=== PATIENT | female | born 1945 | race Caucasian/White ===

== ENCOUNTER 2019-08-23 23:40 | Inpatient (IN) | payer MEDICARE ==
[~2019-08-23] VITALS: Ht 165.1 cm; Wt 84.0 kg
[2019-08-24] MEDS ORDERED: LISI1TAB20 PO (01:55)
[2019-08-24] MEDS: PLEASE ENTER ALLERGIES MC SCH ×6 (02:00→07:00)
[2019-08-24] MEDS ORDERED: morphine SULFATE 10 MG/ML, 1ML IVPush ONE (02:00)
[2019-08-24] MEDS ORDERED: GLUC1TAB27 PO (02:03)
[2019-08-24] MEDS ORDERED: CHOL100011 PO (02:03)
[2019-08-24] MEDS ORDERED: MELO7.5T31 PO (02:03)
[2019-08-24] MEDS ORDERED: MULT-257 PO (02:03)
[2019-08-24] MEDS ORDERED: TRAM50TA2 PO (02:03)
[2019-08-24] MEDS ORDERED: PRAV80TA2 PO (02:03)
[2019-08-24] MEDS ORDERED: hydrALAzine 20 MG/ML, 1ML IVPush PRN (02:30)
[2019-08-24] MEDS ORDERED: ACETAMINOPHEN 325 MG TABLET PO PRN (02:30)
[2019-08-24] MEDS ORDERED: ONDANSETRON 2MG/ML, 2ML IVPush PRN (02:30)
[2019-08-24 02:49] VITALS: BP 138/75
[2019-08-24] MEDS ORDERED: CEFEPIME 2 GM in DEXTROSE 5% 100 ML IV SCH (03:00)
[2019-08-24 03:02] LABS: HCT (SEDRATE) 33.8 % (34.6-47.8)
[2019-08-24 03:03] LABS: BASOPHILS # (AUTO) 0.03 x10^3/uL (0-0.1); BASOPHILS % (AUTO) 0 % (0-1); EOSINOPHILS # (AUTO) 0.22 x10^3/uL (0-0.4); EOSINOPHILS % (AUTO) 2 % (1-7); LYMPHOCYTES % (AUTO) 17 % (22-44); MD NO; MEAN CORPUSCULAR HEMOGLOBIN 28.1 pg (27.0-34.8); MEAN CORPUSCULAR HGB CONC 33.1 g/dL (32.4-35.8); MEAN CORPUSCULAR VOLUME 84.7 fL (80-100); MONOCYTES % (AUTO) 8 % (2-9); NEUTROPHILS # (AUTO) 7.42 x10^3/uL (1.8-6.8); NEUTROPHILS % (AUTO) 73 % (42-75); PLATELET COUNT 319 x10^3/uL (130-400); RED BLOOD COUNT 3.95 x10^6/uL (3.82-5.3); RED CELL DISTRIBUTION WIDTH 13.6 % (9.6-15.2)
[2019-08-24 03:08] LABS: INTERNATIONAL NORMALIZED RATIO 0.97 (0.93-1.1); PROTHROMBIN TIME 10.3 Seconds (9.6-11.5)
[2019-08-24 03:11] LABS: ALANINE AMINOTRANSFERASE 22 U/L (12-78); ALBUMIN 3.1 g/dL (3.4-5.0); ANION GAP 8 mmol/L (5-15); CALCIUM 8.8 mg/dL (8.5-10.1); CHLORIDE 108 mmol/L (98-107); CREATININE 1.04 mg/dL (0.55-1.02)
[2019-08-24 03:16] LABS: ALKALINE PHOSPHATASE 118 U/L (45-117); BILIRUBIN,TOTAL 0.5 mg/dL (0.2-1.0); TOTAL PROTEIN 6.3 g/dL (6.4-8.2); TROPONIN I 0.024 ng/mL (0.000-0.045)
[2019-08-24] MEDS ORDERED: POTASSIUM CHLORIDE 40 MEQ in SODIUM CHLORIDE 0.9% 500 ML IV ONE (04:00)
[2019-08-24] MEDS: METRONIDAZOLE PMX 500MG/100ML 100 ML IV SCH ×3 (05:01→17:50)
[2019-08-24] MEDS: morphine SULFATE 10 MG/ML, 1ML IVPush PRN ×6 (07:38→22:20)
[2019-08-24 07:54] VITALS: BP 126/58
[2019-08-24 08:08] LABS: MICROSCOPIC NOT IND
[2019-08-24 08:13] LABS: CULTURE INDICATED? NO
[2019-08-24] MEDS ORDERED: LIDOCAINE 1%, 20ML ONE (13:18)
[2019-08-24 13:30] VITALS: BP 145/79
[2019-08-24] MEDS ORDERED: FLUMAZENIL 0.1 MG/1 ML, 5ML ONE (13:34)
[2019-08-24] MEDS ORDERED: FENTANYL PF 100 MCG/2ML ONE (13:34)
[2019-08-24] MEDS ORDERED: NALOXONE 1 MG/ML, 2ML ONE (13:34)
[2019-08-24] MEDS ORDERED: MIDAZOLAM 1 MG/ML, 5ML ONE ×2 (13:34→14:08)
[2019-08-24 14:16] LABS: MICROSCOPIC NOT IND
[2019-08-24 19:31] VITALS: BP 133/71
[2019-08-24 19:32] VITALS: BP 119/73
[2019-08-24] MEDS: PRAVASTATIN 40 MG TABLET PO SCH (20:58)
[2019-08-25] MEDS: METRONIDAZOLE PMX 500MG/100ML 100 ML IV SCH ×4 (00:20→17:27)
[2019-08-25 03:05] VITALS: BP 142/72
[2019-08-25] MEDS: morphine SULFATE 10 MG/ML, 1ML IVPush PRN ×2 (03:39→20:29)
[2019-08-25] MEDS: CEFEPIME 2 GM in DEXTROSE 5% 100 ML IV SCH (03:44)
[2019-08-25 04:58] LABS: BASOPHILS # (AUTO) 0.04 x10^3/uL (0-0.1); BASOPHILS % (AUTO) 1 % (0-1); EOSINOPHILS # (AUTO) 0.33 x10^3/uL (0-0.4); EOSINOPHILS % (AUTO) 4 % (1-7); LYMPHOCYTES # (AUTO) 1.31 x10^3/uL (1-3.4); LYMPHOCYTES % (AUTO) 14 % (22-44); MD NO; MEAN CORPUSCULAR HEMOGLOBIN 28.6 pg (27.0-34.8); MEAN CORPUSCULAR HGB CONC 33.6 g/dL (32.4-35.8); MEAN CORPUSCULAR VOLUME 85.1 fL (80-100); MEAN PLATELET VOLUME 9.1 fL (7.4-10.4); MONOCYTES # (AUTO) 0.72 x10^3/uL (0.2-0.8); MONOCYTES % (AUTO) 8 % (2-9); NEUTROPHILS # (AUTO) 6.81 x10^3/uL (1.8-6.8); NEUTROPHILS % (AUTO) 74 % (42-75); PLATELET COUNT 254 x10^3/uL (130-400); RED CELL DISTRIBUTION WIDTH 14.1 % (9.6-15.2)
[2019-08-25 05:05] LABS: ALBUMIN 2.9 g/dL (3.4-5.0); ANION GAP 5 mmol/L (5-15); CALCIUM 8.5 mg/dL (8.5-10.1); CHLORIDE 108 mmol/L (98-107)
[2019-08-25 05:08] LABS: ALANINE AMINOTRANSFERASE 20 U/L (12-78); ALKALINE PHOSPHATASE 114 U/L (45-117); BILIRUBIN,TOTAL 0.6 mg/dL (0.2-1.0); CREATININE 1.03 mg/dL (0.55-1.02); TOTAL PROTEIN 5.7 g/dL (6.4-8.2)
[2019-08-25 07:26] VITALS: BP 131/61
[2019-08-25] MEDS: MULTIVITAMIN 1 TABLET PO SCH (08:38)
[2019-08-25] MEDS: HYDROCHLOROTHIAZIDE 25 MG TABLET PO SCH (08:46)
[2019-08-25] MEDS: LISINOPRIL 20 MG TABLET PO SCH (08:46)
[2019-08-25] MEDS ORDERED: LISINOPRIL 20 MG TABLET PO SCH (09:00)
[2019-08-25 13:44] VITALS: BP 113/50
[2019-08-25] MEDS: POTASSIUM CHLORIDE 20 MEQ TAB.ER.PRT PO SCH (16:46)
[2019-08-25 19:52] VITALS: BP 143/66
[2019-08-25] MEDS: PRAVASTATIN 40 MG TABLET PO SCH (20:32)
[2019-08-26] MEDS: METRONIDAZOLE PMX 500MG/100ML 100 ML IV SCH ×4 (00:05→18:34)
[2019-08-26 00:39] VITALS: BP 142/64
[2019-08-26] MEDS: CEFEPIME 2 GM in DEXTROSE 5% 100 ML IV SCH (04:35)
[2019-08-26] MEDS: morphine SULFATE 10 MG/ML, 1ML IVPush PRN ×4 (04:37→23:54)
[2019-08-26 05:23] LABS: BASOPHILS # (AUTO) 0.02 x10^3/uL (0-0.1); BASOPHILS % (AUTO) 0 % (0-1); EOSINOPHILS # (AUTO) 0.21 x10^3/uL (0-0.4); EOSINOPHILS % (AUTO) 2 % (1-7); LYMPHOCYTES # (AUTO) 0.77 x10^3/uL (1-3.4); LYMPHOCYTES % (AUTO) 6 % (22-44); MD NO; MEAN CORPUSCULAR HEMOGLOBIN 28.9 pg (27.0-34.8); MEAN CORPUSCULAR HGB CONC 33.6 g/dL (32.4-35.8); MEAN CORPUSCULAR VOLUME 85.9 fL (80-100); MEAN PLATELET VOLUME 9.1 fL (7.4-10.4); MONOCYTES # (AUTO) 1.12 x10^3/uL (0.2-0.8); MONOCYTES % (AUTO) 9 % (2-9); NEUTROPHILS # (AUTO) 10.18 x10^3/uL (1.8-6.8); NEUTROPHILS % (AUTO) 83 % (42-75); PLATELET COUNT 261 x10^3/uL (130-400); RED BLOOD COUNT 3.81 x10^6/uL (3.82-5.3)
[2019-08-26 05:26] LABS: ANION GAP 3 mmol/L (5-15); CALCIUM 8.6 mg/dL (8.5-10.1); CHLORIDE 104 mmol/L (98-107); CREATININE 0.95 mg/dL (0.55-1.02)
[2019-08-26 07:20] VITALS: BP 134/63
[2019-08-26] MEDS ORDERED: POTASSIUM CHLORIDE 20 MEQ in SODIUM CHLORIDE 0.9% 250 ML IV ONE (08:30)
[2019-08-26] MEDS ORDERED: VANCOMYCIN PER PHARMACY MC PRN (08:30)
[2019-08-26] MEDS: POTASSIUM CHLORIDE 20 MEQ TAB.ER.PRT PO SCH (08:36)
[2019-08-26] MEDS: MULTIVITAMIN 1 TABLET PO SCH (08:36)
[2019-08-26] MEDS: HYDROCHLOROTHIAZIDE 25 MG TABLET PO SCH (08:36)
[2019-08-26] MEDS: LISINOPRIL 20 MG TABLET PO SCH (08:36)
[2019-08-26] MEDS: CHOLECALCIFEROL 400 UNITS TABLET PO SCH (08:53)
[2019-08-26] MEDS ORDERED: PHARMACOKINETIC MONITORING MC PRN (09:30)
[2019-08-26] MEDS ORDERED: PHARMACOKINETIC CONSULTATION MC ONE (09:30)
[2019-08-26] MEDS: VANCOMYCIN 1,700 MG in SODIUM CHLORIDE 0.9% 250 ML IV SCH ×2 (11:45→23:44)
[2019-08-26 13:43] VITALS: BP 121/70
[2019-08-26] MEDS: ASCORBIC ACID 500 MG TABLET PO SCH (18:34)
[2019-08-26 19:26] VITALS: BP 120/70
[2019-08-26] MEDS: PRAVASTATIN 40 MG TABLET PO SCH (20:32)
[2019-08-27 00:58] VITALS: BP 120/73
[2019-08-27] MEDS: METRONIDAZOLE PMX 500MG/100ML 100 ML IV SCH ×4 (02:00→20:29)
[2019-08-27] MEDS: CEFEPIME 2 GM in DEXTROSE 5% 100 ML IV SCH (04:25)
[2019-08-27 05:50] LABS: BASOPHILS % (AUTO) 0 % (0-1); EOSINOPHILS # (AUTO) 0.11 x10^3/uL (0-0.4); EOSINOPHILS % (AUTO) 1 % (1-7); LYMPHOCYTES # (AUTO) 0.77 x10^3/uL (1-3.4); LYMPHOCYTES % (AUTO) 7 % (22-44); MD NO; MEAN CORPUSCULAR HEMOGLOBIN 28.6 pg (27.0-34.8); MEAN CORPUSCULAR HGB CONC 33.3 g/dL (32.4-35.8); MEAN CORPUSCULAR VOLUME 85.9 fL (80-100); MEAN PLATELET VOLUME 9.4 fL (7.4-10.4); MONOCYTES # (AUTO) 1.03 x10^3/uL (0.2-0.8); MONOCYTES % (AUTO) 10 % (2-9); NEUTROPHILS # (AUTO) 8.85 x10^3/uL (1.8-6.8); NEUTROPHILS % (AUTO) 82 % (42-75); PLATELET COUNT 216 x10^3/uL (130-400); RED BLOOD COUNT 3.65 x10^6/uL (3.82-5.3); RED CELL DISTRIBUTION WIDTH 14.1 % (9.6-15.2)
[2019-08-27 05:54] LABS: ALBUMIN 2.5 g/dL (3.4-5.0); ANION GAP 7 mmol/L (5-15); CALCIUM 8.5 mg/dL (8.5-10.1); CHLORIDE 102 mmol/L (98-107); CREATININE 0.79 mg/dL (0.55-1.02)
[2019-08-27] MEDS: ASCORBIC ACID 500 MG TABLET PO SCH ×2 (07:40→17:07)
[2019-08-27] MEDS: HYDROCHLOROTHIAZIDE 25 MG TABLET PO SCH (07:41)
[2019-08-27] MEDS: MULTIVITAMIN 1 TABLET PO SCH (07:41)
[2019-08-27] MEDS: CHOLECALCIFEROL 400 UNITS TABLET PO SCH (07:44)
[2019-08-27] MEDS: LISINOPRIL 20 MG TABLET PO SCH (07:45)
[2019-08-27] MEDS: morphine SULFATE 10 MG/ML, 1ML IVPush PRN (07:53)
[2019-08-27 08:00] VITALS: BP 141/72
[2019-08-27] MEDS ORDERED: POTASSIUM CHLORIDE 20 MEQ in SODIUM CHLORIDE 0.9% 250 ML IV ONE (09:00)
[2019-08-27] MEDS ORDERED: MAGNESIUM SULFATE PMX 2GM/50ML 50 ML IV ONE (09:00)
[2019-08-27] MEDS ORDERED: LORazepam 2 MG/ML, 1ML IVPush ONE (10:00)
[2019-08-27] MEDS: HYDROmorphone 2 MG/ML, 1ML IVPush PRN ×2 (10:05→11:45)
[2019-08-27] MEDS ORDERED: POTASSIUM PHOSPHATE 44 MEQ in SODIUM CHLORIDE 0.9% 500 ML IV ONE (12:00)
[2019-08-27] MEDS: VANCOMYCIN 1,700 MG in SODIUM CHLORIDE 0.9% 250 ML IV SCH (12:40)
[2019-08-27 12:53] VITALS: BP 107/41
[2019-08-27] MEDS ORDERED: CHLORHEXIDINE 15 ML UDC MM ONE (14:30)
[2019-08-27] MEDS ORDERED: FENTANYL PF 100 MCG/2ML ONE (15:02)
[2019-08-27] MEDS ORDERED: PROPOFOL 10 MG/ML, 20ML ONE (15:12)
[2019-08-27] MEDS ORDERED: DEXAMETHASONE 4 MG/ML, 1ML ONE (15:12)
[2019-08-27] MEDS ORDERED: SUCCINYLCHOLINE 20 MG/ML, 10ML ONE (15:12)
[2019-08-27] MEDS ORDERED: ONDANSETRON 2MG/ML, 2ML ONE (15:12)
[2019-08-27 19:07] VITALS: BP 123/68
[2019-08-27] MEDS: PRAVASTATIN 40 MG TABLET PO SCH (20:29)
[2019-08-28 00:25] VITALS: BP 117/71
[2019-08-28] MEDS: VANCOMYCIN 1,700 MG in SODIUM CHLORIDE 0.9% 250 ML IV SCH (00:26)
[2019-08-28] MEDS: METRONIDAZOLE PMX 500MG/100ML 100 ML IV SCH ×2 (02:39→08:23)
[2019-08-28] MEDS: CEFEPIME 2 GM in DEXTROSE 5% 100 ML IV SCH (03:59)
[2019-08-28 04:34] VITALS: BP 120/63
[2019-08-28 05:30] LABS: ALBUMIN 2.4 g/dL (3.4-5.0); ANION GAP 7 mmol/L (5-15); BASOPHILS # (AUTO) 0.06 x10^3/uL (0-0.1); BASOPHILS % (AUTO) 1 % (0-1); CALCIUM 8.9 mg/dL (8.5-10.1); CHLORIDE 102 mmol/L (98-107); CREATININE 0.79 mg/dL (0.55-1.02); EOSINOPHILS # (AUTO) 0.01 x10^3/uL (0-0.4); EOSINOPHILS % (AUTO) 0 % (1-7); LYMPHOCYTES # (AUTO) 0.38 x10^3/uL (1-3.4); LYMPHOCYTES % (AUTO) 3 % (22-44); MD NO; MEAN CORPUSCULAR HEMOGLOBIN 28.3 pg (27.0-34.8); MEAN CORPUSCULAR HGB CONC 32.7 g/dL (32.4-35.8); MEAN CORPUSCULAR VOLUME 86.4 fL (80-100); MEAN PLATELET VOLUME 9.1 fL (7.4-10.4); MONOCYTES # (AUTO) 0.98 x10^3/uL (0.2-0.8); MONOCYTES % (AUTO) 7 % (2-9); NEUTROPHILS # (AUTO) 12.16 x10^3/uL (1.8-6.8); NEUTROPHILS % (AUTO) 90 % (42-75); PLATELET COUNT 255 x10^3/uL (130-400); RED BLOOD COUNT 3.82 x10^6/uL (3.82-5.3); RED CELL DISTRIBUTION WIDTH 13.9 % (9.6-15.2)
[2019-08-28 07:45] VITALS: BP 122/83
[2019-08-28] MEDS: CHOLECALCIFEROL 400 UNITS TABLET PO SCH (08:24)
[2019-08-28] MEDS: ASCORBIC ACID 500 MG TABLET PO SCH ×2 (08:25→18:02)
[2019-08-28] MEDS: HYDROCHLOROTHIAZIDE 25 MG TABLET PO SCH (08:25)
[2019-08-28] MEDS: LISINOPRIL 20 MG TABLET PO SCH (08:25)
[2019-08-28] MEDS: MULTIVITAMIN 1 TABLET PO SCH (08:28)
[2019-08-28 13:40] VITALS: BP 102/63
[2019-08-28 19:18] VITALS: BP 113/57
[2019-08-28] MEDS: PRAVASTATIN 40 MG TABLET PO SCH (20:21)
[2019-08-28] MEDS: morphine SULFATE 10 MG/ML, 1ML IVPush PRN (23:44)
[2019-08-29 00:08] VITALS: BP 128/78
[2019-08-29 05:28] LABS: BASOPHILS # (AUTO) 0.06 x10^3/uL (0-0.1); BASOPHILS % (AUTO) 1 % (0-1); EOSINOPHILS # (AUTO) 0.14 x10^3/uL (0-0.4); EOSINOPHILS % (AUTO) 1 % (1-7); LYMPHOCYTES # (AUTO) 0.87 x10^3/uL (1-3.4); LYMPHOCYTES % (AUTO) 9 % (22-44); MD NO; MEAN CORPUSCULAR HEMOGLOBIN 28.3 pg (27.0-34.8); MEAN CORPUSCULAR VOLUME 85.7 fL (80-100); MEAN PLATELET VOLUME 9.6 fL (7.4-10.4); MONOCYTES # (AUTO) 0.81 x10^3/uL (0.2-0.8); MONOCYTES % (AUTO) 8 % (2-9); NEUTROPHILS # (AUTO) 8.33 x10^3/uL (1.8-6.8); NEUTROPHILS % (AUTO) 82 % (42-75); PLATELET COUNT 286 x10^3/uL (130-400); RED BLOOD COUNT 3.68 x10^6/uL (3.82-5.3); RED CELL DISTRIBUTION WIDTH 14.2 % (9.6-15.2)
[2019-08-29 05:34] LABS: ALBUMIN 2.4 g/dL (3.4-5.0); ANION GAP 5 mmol/L (5-15); CALCIUM 8.8 mg/dL (8.5-10.1); CHLORIDE 103 mmol/L (98-107)
[2019-08-29] MEDS: morphine SULFATE 10 MG/ML, 1ML IVPush PRN (06:32)
[2019-08-29] MEDS ORDERED: POTASSIUM CHLORIDE 20 MEQ in SODIUM CHLORIDE 0.9% 250 ML IV ONE (07:00)
[2019-08-29 07:29] VITALS: BP 139/79
[2019-08-29] MEDS: MULTIVITAMIN 1 TABLET PO SCH (08:35)
[2019-08-29] MEDS: ASCORBIC ACID 500 MG TABLET PO SCH (08:35)
[2019-08-29] MEDS: HYDROCHLOROTHIAZIDE 25 MG TABLET PO SCH (08:35)
[2019-08-29] MEDS: LISINOPRIL 20 MG TABLET PO SCH (08:36)
[2019-08-29] MEDS: CHOLECALCIFEROL 400 UNITS TABLET PO SCH (08:36)
[2019-08-29] MEDS ORDERED: BUTALB/APAP/CAFFEINE 50MG/325MG/40MG PO PRN (09:00)
[2019-08-29] MEDS ORDERED: POTASSIUM PHOSPHATE 44 MEQ in SODIUM CHLORIDE 0.9% 500 ML IV ONE (09:30)
[2019-08-29] MEDS ORDERED: ASCO500T6 PO (11:19)
[2019-08-29] MEDS ORDERED: CHOL400T2 PO (11:19)
[2019-08-29] MEDS ORDERED: BUTA-177 PO (11:19)
[2019-08-29] MEDS ORDERED: OXYC-307 PO (11:35)
[2019-08-29] MEDS ORDERED: VANCOMYCIN 1,700 MG in SODIUM CHLORIDE 0.9% 250 ML IV SCH ×2 (12:00)
[2019-08-29 15:21] VITALS: BP 133/62
== END 2019-08-29 16:10 | DRG 543 ==
LOC: EDIP 08-24 01:29 → 4NE 08-24 01:32
PROVIDERS: ADMIT Family Medicine; ATTEND Family Medicine
PROC: 0T9B70Z Drainage of Bladder with Drainage Device, Via Natural or Artificial Opening (ICD-10-PCS; principal; 2019-08-24)
PROC: 0W9F3ZZ Drainage of Abdominal Wall, Percutaneous Approach (ICD-10-PCS; 2019-08-24)
PROC: 0TJB8ZZ Inspection of Bladder, Via Natural or Artificial Opening Endoscopic (ICD-10-PCS; 2019-08-27)
DX: M84.454A Pathological fracture, pelvis, initial encounter for fracture (principal); L02.211 Cutaneous abscess of abdominal wall; S30.1XXA Contusion of abdominal wall, initial encounter; D64.9 Anemia, unspecified; E78.5 Hyperlipidemia, unspecified; E87.6 Hypokalemia; G89.29 Other chronic pain; I10 Essential (primary) hypertension; K59.00 Constipation, unspecified; N28.1 Cyst of kidney, acquired; Z66 Do not resuscitate; Z85.3 Personal history of malignant neoplasm of breast; Z88.0 Allergy status to penicillin; Z90.5 Acquired absence of kidney; Z90.710 Acquired absence of both cervix and uterus; Z91.81 History of falling
CPT/HCPCS: 36415; 49406; 72195; 75989; 76942; 80048; 80053; 80069; 80202; 81003; 83605; 83735; 83880; 84100; 84443; 84484; 85025; 85610; 85651; 87070; 87075; 87086; 87205; 93005; 93306; 99156; 99157; C1894; G0378; J1100; J1170; J2250; J2405; J2704; J3010; J3370; J3480; C1729; C1769; J0330; J2060; J2270; J2310; J3475; J7040; J7050